=== PATIENT | male | born 1945 | race Caucasian/White ===

== ENCOUNTER 2018-03-31 06:06 | Day surgery (SDC) | payer OTHER ==
--- OUTSIDE RECORDS SUMMARY | 2018-03-31 06:08 | XMS REPORT | Continuity of Care Document ---
:1945 Author Organization Interface Problems Problem Status Onset Classification Date Comments Source Date Reported Chronic 09/10/19 Diagnosis 09/09/2017 [facility] constipation 18 Body mass index 08/26/19 Diagnosis 09/09/2017 [facility] 40+ - severely 18 obese Pain in throat 08/26/19 Diagnosis 09/09/2017 [facility] 18 Cough 08/26/19 Diagnosis 09/09/2017 [facility] 18 Acute upper 08/26/19 Diagnosis 09/09/2017 [facility] respiratory 18 infection Common cold 06/24/19 Diagnosis 06/24/2017 [facility] 18 Diabetes Mellitus 04/08/20 Problem 09/09/2017 [facility] 17 Essential 04/08/20 Problem 09/09/2017 [facility] Hypertension 17 Asthma 04/08/20 Problem 09/09/2017 [facility] 17 Superficial injury 04/08/20 Diagnosis 04/08/2017 [facility] of finger with 17 infection Acute bronchitis 08/21/19 Diagnosis 08/20/2016 [facility] 17 Pharyngitis 08/10/19 Diagnosis 08/20/2016 [facility] 17 Herpes Zoster Problem 08/20/2016 [facility] Conjunctivitis Problem 08/20/2016 [facility] Blepharitis Problem 08/20/2016 [facility] Lesion of Eyelid Problem 08/20/2016 [facility] Pain in Eye Problem 08/20/2016 [facility] Acute Sinusitis Problem 08/20/2016 [facility] Acute Pharyngitis Problem 08/20/2016 [facility] Acute Upper Problem 08/20/2016 [facility] Respiratory Infection Sinusitis Problem 08/20/2016 [facility] Posterior Problem 08/20/2016 [facility] Rhinorrhea Bronchitis Problem 08/20/2016 [facility] Infection of Toe Problem 08/20/2016 [facility] Swelling of Lower Problem 08/20/2016 [facility] Limb Epistaxis Problem 08/20/2016 [facility] Lymphadenopathy Problem 08/20/2016 [facility] Diarrhea Problem 08/20/2016 [facility] Medications Medication Details Route Status Patient Ordering Order Source Instructions Provider Date Alprazolam 0.25 MG alprazolam Active [facility] Oral Tablet 0.25 mg tablet Brompheniramine Bromfed DM 2 Active [facility] Maleate 0.4 MG/ML / mg-30 mg-10 Dextromethorphan mg/5 mL syrup Hydrobromide 2 Take 10 mL MG/ML / every 4-6 Pseudoephedrine hours by oral Hydrochloride 6 route as MG/ML Oral Solution needed. [Bromfed DM] clopidogrel 75 MG clopidogrel 75 Active [facility] Oral Tablet mg tablet Furosemide 40 MG furosemide 40 Active [facility] Oral Tablet mg tablet 24 HR Isosorbide isosorbide Active [facility] Mononitrate 30 MG mononitrate ER Extended Release 30 mg Oral Tablet tablet,extende d release 24 hr 24 HR Isosorbide isosorbide Active [facility] Mononitrate 60 MG mononitrate ER Extended Release 60 mg Oral Tablet tablet,extende d release 24 hr Microencapsulated Klor-Con M20 Active [facility] Potassium Chloride mEq 20 MEQ Extended tablet,extende Release Oral Tablet d release [Klor-Con] Lisinopril 10 MG lisinopril 10 Active [facility] Oral Tablet mg tablet Metformin metformin 500 Active [facility] hydrochloride 500 mg tablet MG Oral Tablet 24 HR metoprolol metoprolol Active [facility] succinate 100 MG succinate ER Extended Release 100 mg Oral Tablet tablet,extende d release 24 hr Nitroglycerin 0.4 Nitrostat 0.4 Active [facility] MG Sublingual mg sublingual Tablet [Nitrostat] tablet valacyclovir 1000 valacyclovir 1 Active [facility] MG Oral Tablet gram tablet 200 ACTUAT albuterol Active [facility] Albuterol 0.09 sulfate HFA 90 MG/ACTUAT Metered mcg/actuation Dose Inhaler aerosol inhaler Inhale 2 puffs every 4 hours by inhalation route as needed. Amoxicillin 875 MG Augmentin 875 Active [facility] / Clavulanate 125 mg-125 mg MG Oral Tablet tablet Take 1 [Augmentin] tablet twice a day by oral route with meals for 10 days. benzonatate 200 MG benzonatate Active [facility] Oral Capsule 200 mg capsule Take 1 capsule 3 times a day by oral route as needed. Fluticasone fluticasone 50 Active [facility] propionate 0.05 mcg/actuation MG/ACTUAT Metered nasal Dose Nasal [place] spray,suspensi on Inhale 2 sprays per nostril daily 24 HR Isosorbide isosorbide Active [facility] Mononitrate 120 MG mononitrate ER Extended Release 120 mg Oral Tablet tablet,extende d release 24 hr Mupirocin 0.02 mupirocin 2 % Active [facility] MG/MG Topical topical Ointment ointment APPLY A SMALL AMOUNT TO THE AFFECTED AREA BY TOPICAL ROUTE 3 TIMES PER DAY Nitroglycerin 0.4 nitroglycerin Active [facility] MG Sublingual 0.4 mg Tablet sublingual tablet Microencapsulated potassium Active [facility] Potassium Chloride chloride ER 20 20 MEQ Extended mEq Release Oral Tablet tablet,extende d release(part/c ryst) 200 ACTUAT ProAir HFA 90 Active [facility] Albuterol 0.09 mcg/actuation MG/ACTUAT Metered aerosol Dose Inhaler inhaler Inhale [ProAir] 2 puffs every 4 hours by inhalation route as needed. 12 HR ranolazine Ranexa 500 mg Active [facility] 500 MG Extended tablet,extende Release Oral Tablet d release Take [Ranexa] 1 tablet twice a day by oral route. Cephalexin 500 MG Keflex 500 mg Active [facility] Oral Capsule capsule Take 1 [Keflex] capsule every 12 hours by oral route as directed for 10 days. Albuterol 0.83 albuterol Active [facility] MG/ML Inhalant sulfate 2.5 Solution mg/3 mL (0.083 %) solution for nebulization Inhale 1 mL by nebulization route. POLYETHYLENE GLYCOL Miralax 17 Active [facility] 3350 58788 MG gram oral Powder for Oral powder packet Solution [Miralax] Take 1 packet every day by oral route. Allergies, Adverse Reactions, Alerts Substance Category Reaction Severity Reaction Status Date Comments Source type Reported Codeine Itching Allergy to [facility] substance 0 Sulfa Allergy to [facility] (Sulfonamid substance 4 e Antibiotics ) Immunizations Immunization Date Site Status Last Comments Source Given Updated influenza, completed [facility] injectable, 7 quadrivalent pneumococcal completed [facility] conjugate PCV 13 7 pneumococcal completed [facility] polysaccharide 6 PPV23 influenza, completed [facility] seasonal, 1 injectable influenza, 02/20/201 completed [facility] seasonal, 1 injectable Results Order Results Value Reference Date Interpretation Comments Source Name Range RESULT negative 09/09/ [facility] 2018 SWAB Left and 09/09/ [facility] LOCATION Right 2018 tonsillar pillars Influenza A negative [facility] 2017 Influenza B negative [facility] 2018 RESULT negative [facility] 2018 SWAB Left and 08/25/ [facility] LOCATION Right 2018 tonsillar pillars Influenza A negative [facility] 2017 Influenza B negative [facility] 2017 Influenza A negative [facility] 2017 Influenza B negative [facility] 2017 RESULT negative [facility] 2016 SWAB Left and 08/20/ [facility] LOCATION Right 2016 tonsillar pillars RESULT negative [facility] 2016 SWAB Left and [facility] LOCATION Right 2017 tonsillar pillars Vital Signs Vital Sign Value Date Comments Source Diastolic (mm Hg) 80 09/09/2017 [facility] Height 70 09/09/2017 [facility] Systolic (mm Hg) 133 09/09/2017 [facility] Weight 290 09/09/2017 [facility] Diastolic (mm Hg) 88 08/25/2017 [facility] Height 70 08/25/2017 [facility] Systolic (mm Hg) 123 08/25/2017 [facility] Weight 285 08/25/2017 [facility] Diastolic (mm Hg) 70 06/24/2017 [facility] Height 70 06/24/2017 [facility] Systolic (mm Hg) 118 06/24/2017 [facility] Weight 295 06/24/2017 [facility] Diastolic (mm Hg) 70 04/08/2017 [facility] Height 70 04/08/2017 [facility] Systolic (mm Hg) 110 04/08/2017 [facility] Weight 295 04/08/2017 [facility] Diastolic (mm Hg) 80 08/20/2016 [facility] Height 70 08/20/2016 [facility] Systolic (mm Hg) 110 08/20/2016 [facility] Weight 280 08/20/2016 [facility] Diastolic (mm Hg) 78 08/10/2016 [facility] Height 70 08/10/2016 [facility] Systolic (mm Hg) 120 08/10/2016 [facility] Encounters Location Location Encounter Encounter Reason Attending ADM DC Status Source Details Type Number For Provider Date Date Visit [place] - Cherri [id number] Cherri 08/10 [facility] Emiola, [id number] Emiola - TINSMITH APPRENTICE: [id number] [id number] [facility] [place] [address] , Ph. [phone] [place] - Cherri [id number] Cherri 08/10 [facility] Emiola, [id number] Emiola - TINSMITH APPRENTICE: [id number] [id number] [facility] [place] [address] , Ph. [phone] [place] - Jovanna [id number] Jovanna 08/20 [facility] [place], [id number] [place] - TINSMITH APPRENTICE: [id number] [address] [facility] [place] [address] , Ph. [phone] [place] - Kiranpal [id number] Kiranpal 04/08 [facility] Ochoa, [id number] Ochoa - PA-C: [id number] [facility] [place] [address] , Ph. [phone] [place] - Kiranpal [id number] Kiranpal 06/24 [facility] Ochoa, [id number] Ochoa - PA-C: [id number] [facility] [place] [address] , Ph. [phone] [place] - Pauly [id number] Pauly 08/25 [facility] Thuy, [id number] Thuy - TINSMITH APPRENTICE-C: [id number] [facility] [place] [address] , Ph. [phone] [place] - Pauly [id number] Pauly 08/25 [facility] Thuy, [id number] Thuy P-C: [id number] [place] [address] , Ph. [phone] [place] - Tanika [id number] Tanika 09/09 [facility] Ababio, [id number] Ababio P-C: [id number] [id number] [place] [address] , Ph. [phone] Procedures Procedure Code Date Perfomer Comments Source Anesth Knee Area [facility] Surgery Removal of [facility] Gallbladder CABG/Stent [facility] Perc Cath [facility] Stent/brain Cv Art Anesth Knee Area 13487 [facility] [place] [address] [facility] Gallbladder Perc Cath 0005T [facility] Stent/brain Cv Art
--- OUTSIDE RECORDS SUMMARY | 2018-03-31 06:08 | XMS REPORT | Clinical Summary ---
:1945 Author Organization [facility] Address [address] [place] [address] Care Team Providers Name Role Phone Asked, No Pcp Primary Care Provider Unavailable Allergies Active Allergy Reactions Severity Noted Date Comments Codeine 03/04/2016 Current Medications Prescription Sig. Disp. Refills Start Date End Date Status KLOR-CON M20 20 mEq CR tablet 02/19/2016 Active NITROSTAT 0.4 mg SL tablet 02/18/2016 Active metoprolol succinate XL (TOPROL-XL) 100 02/18/2016 Active MG 24 hr tablet metFORMIN (GLUCOPHAGE) 500 MG tablet 02/10/2016 Active lisinopril (PRINIVIL,ZESTRIL) 10 MG 02/09/2016 Active tablet furosemide (LASIX) 40 MG tablet 02/19/2016 Active ALPRAZolam (XANAX) 0.25 MG tablet 02/13/2016 Active clopidogrel (PLAVIX) 75 mg tablet 02/10/2016 Active isosorbide mononitrate (IMDUR) 60 MG 24 02/19/2016 Active hr tablet Active Problems No known active problems Family History Medical History Relation Name Comments Hypertension Sister Relation Name Status Comments Sister Social History Tobacco Use Types Packs/Day Years Used Date Never Smoker Alcohol Use Drinks/Week oz/Week Comments Yes rarely Sex Assigned at Date Recorded Not on file Last Filed Vital Signs Not on file Plan of Treatment Health Maintenance Due Date Last Done Comments COLON CANCER SCREENING 01/30/1996 SHINGRIX VACCINE (#1) 01/30/1996 ZOSTER VACCINE 2006 PNEUMOCOCCAL POLYSACCHARIDE VACCINE AGE 65 AND OVER 2011 PNEUMOCOCCAL-13 2011 INFLUENZA VACCINE 01/14/2018 Results Not on fileafter 03/30/2017 Insurance Payer Benefit Plan / Group Subscriber ID Type Phone Address MEDICARE MEDICARE PART A AND B xxxxxxxxxx Medicare [facility] SUPPLEMENT xxxxxxxxxxx Commercial
--- OUTSIDE RECORDS SUMMARY | 2018-03-31 06:09 | XMS REPORT | Encounter Summary ---
:1945 Author Reason for Visit Medical Complaint Instructions 1. Acute upper respiratory infection Bromfed DM 2 mg-30 mg-10 mg/5 mL syrup 2. Pharyngitis rapid strep group A, throat Discussion Note Warm salt water gargles or throat lozenges as needed for your sore throat. Tylenol or ibuprofen as needed for fever/headache. Increased fluid. Follow up with your primary care provider in 3days, sooner if symptoms worsens. Patient educational handouts: No information available. Plan of Care Reminders Provider Appointments None recorded. Lab Rapid Strep 08/10/2016 [facility] Group a, Throat Referral None recorded. Procedures None recorded. Surgeries None recorded. Imaging None recorded. Medications Name Start Date alprazolam 0.25 mg tablet Bromfed DM 2 mg-30 mg-10 mg/5 mL syrup Take 10 mL every 4-6 hours by oral route as needed. clopidogrel 75 mg tablet furosemide 40 mg tablet isosorbide mononitrate ER 30 mg tablet,extended release 24 hr isosorbide mononitrate ER 60 mg tablet,extended release 24 hr Klor-Con M20 mEq tablet,extended release lisinopril 10 mg tablet metformin 500 mg tablet metoprolol succinate ER 100 mg tablet,extended release 24 hr Nitrostat 0.4 mg sublingual tablet valacyclovir 1 gram tablet Medications Administered None recorded. Vitals Height Blood Pressure 5 ft 10 in 120/78 Lab Results Date Name Result Description Value Range Status Rapid Strep Group Result negative a, Throat Swab Location Left and Right tonsillar pillars Allergies Name Reaction Severity Onset Codeine Itching Sulfa (Sulfonamide Antibiotics) Problems Name Status Onset Date Source Herpes Zoster Active Encounter Conjunctivitis Active Encounter Blepharitis Active Encounter Lesion of Eyelid Active Encounter Pain in Eye Active Encounter Acute Sinusitis Active Encounter Acute Pharyngitis Active Encounter Acute Upper Respiratory Infection Active Encounter Sinusitis Active Encounter Posterior Rhinorrhea Active Encounter Bronchitis Active Encounter Infection of Toe Active Encounter Swelling of Lower Limb Active Encounter Epistaxis Active Encounter Lymphadenopathy Active Encounter Cough Active Encounter Diarrhea Active Encounter Procedures Date Name Performed by Anesth Knee Area Surgery Information not available Removal of Gallbladder Information not available CABG/Stent Information not available Perc Cath Stent/brain Cv Art Information not available Vaccine List Vaccine Type influenza, seasonal, injectable 08/05/2010 08/17/2010 Social History Smoking Status Never Smoker Past Encounters 08/10/2016 Acute Upper Respiratory Infection; Pharyngitis Cherri LALO MercedesP: [id number] [facility], [place] [address], Ph. History of Present Illness Throat-Oral Complaint Reported By: Patient HPI: Location: throat. Quality: sore throat, productive cough, congested. Severity: moderate. Duration: 2 days. Context: no sick contacts, no foreign travel, non-smoker. Modifying factors: OTC medication. Associated Symptoms: blood-streaked sputum Review of Systems Basic Reported By: Patient Constitutional: Constitutional: no fever Dhmv-Hutt-Arerm-Throat: Ears: no ear complaints. Nose: nose/sinus problems. Mouth/Throat: no bleeding gums, no mouth complaints, no teeth problems, sore throat Cardiovascular: Cardiovascular: no chest pain, no shortness of breath, no known heart murmur Respiratory: Respiratory: no wheezing, no shortness of breath, cough Neurologic: Neurologic: no loss of consciousness, no weakness, no numbness, no seizures, no dizziness, no headaches Physical Exam Adult Basic, Adult Male Complete Reported By: Patient Constitutional: General Appearance: healthy-appearing, well-nourished, well-developed. Level of Distress: NAD. Ambulation: ambulating normally Psychiatric: Orientation: to time, to place, to person Dpr-Qavk-Lshhi-Throat: Ears: no lesions on external ear, no outer ear tenderness, EACs clear, TMs clear. Nose: no lesions on external nose, nares patent, no septal deviation, nasal passages clear, no sinus tenderness, no nasal discharge. Oropharynx: moist mucous membranes, no erythema, no exudates, tonsils not enlarged Neck: Lymph Nodes: no cervical LAD Lungs: Respiratory effort: no dyspnea, no tachypnea, no use of accessory muscles, no intercostal retractions. Auscultation: breath sounds normal, good air movement Cardiovascular: Heart Auscultation: RRR, no murmurs
--- OUTSIDE RECORDS SUMMARY | 2018-03-31 06:09 | XMS REPORT | Encounter Summary ---
:1945 Author Reason for Visit Medical Complaint Instructions 1. Acute upper respiratory infection upper respiratory infection (cold): care instructions albuterol sulfate 2.5 mg/3 mL (0.083 %) solution for nebulization 2. Cough rapid flu (A+B) cough: care instructions benzonatate 200 mg capsule 3. Pain in throat rapid strep group A, throat sore throat: care instructions 4. Body mass index 40+ - severely obese A healthy lifestyle: care instructions Discussion Note: None recorded. Plan of Care Patient Instructions Increase fluid; rest. Tylenol or Ibuprofen as needed for fever or pain. Increase exposure to moist air from humidifier or hot shower. Salt water gargles as needed. Follow up with PCP. See care instructions Reminders Provider Appointments None recorded. Lab Rapid Flu 08/25/2017 [facility] (A+B) Rapid Strep 08/25/2017 [facility] Group a, Throat Referral None recorded. Procedures None recorded. Surgeries None recorded. Imaging None recorded. Medications Name Start Date albuterol sulfate 2.5 mg/3 mL (0.083 %) solution for nebulization Inhale 1 mL by nebulization route. alprazolam 0.25 mg tablet benzonatate 200 mg capsule Take 1 capsule 3 times a day by oral route as needed. clopidogrel 75 mg tablet fluticasone 50 mcg/actuation nasal spray,suspension Inhale 2 sprays per nostril daily furosemide 40 mg tablet isosorbide mononitrate ER 120 mg tablet,extended release 24 hr lisinopril 10 mg tablet metformin 500 mg tablet metoprolol succinate ER 100 mg tablet,extended release 24 hr mupirocin 2 % topical ointment APPLY A SMALL AMOUNT TO THE AFFECTED AREA BY TOPICAL ROUTE 3 TIMES PER DAY nitroglycerin 0.4 mg sublingual tablet potassium chloride ER 20 mEq tablet,extended release(part/cryst) ProAir HFA 90 mcg/actuation aerosol inhaler Inhale 2 puffs every 4 hours by inhalation route as needed. Ranexa 500 mg tablet,extended release Take 1 tablet twice a day by oral route. Medications Administered Name Date albuterol sulfate 2.5 mg/3 mL (0.083 %) solution for nebulization [id number] Inhale 1 mL by nebulization route. Vitals Height Weight BMI Blood Pressure 5 ft 10 in 285 lbs 40.9 kg/m2 123/88 mm[Hg] Lab Results Date Name Specimen Result Interpretation Description Value Range Status Address Rapid Strep Result negative [facility]: Group a, [address] [place] [facility] Swab Location Left and Right [facility]: tonsillar [address] [place] pillars [facility] Rapid Flu Influenza a negative [facility]: (A+B) 9 [facility] Influenza B negative [facility]: 9 [facility] Allergies Code Code System Name Reaction Severity Status Onset 2669 RxNorm Codeine Itching Active Sulfa Active (Sulfonamide Antibiotics) Problems Name Status Onset Date Source Diabetes Mellitus Active 04/08/2017 Essential Hypertension Active 04/08/2017 Asthma Active 04/08/2017 Procedures Date Name Performed by Anesth Knee Area Surgery Information not available Removal of Gallbladder Information not available CABG/Stent Information not available Perc Cath Stent/brain Cv Art Information not available Vaccine List Vaccine Type influenza, injectable, quadrivalent 05/16/2017 influenza, seasonal, injectable 08/05/2010 08/17/2010 pneumococcal conjugate PCV 13 06/16/2016 pneumococcal polysaccharide PPV23 06/16/2015 Social History Smoking Status Never Smoker Past Encounters 08/25/2017 Acute Upper Respiratory Infection; Cough; Pain in Throat; Body Mass Index 40+ - Severely Obese Pauly Daley, [facility]: [address] [place] [address], Ph. [phone] History of Present Illness Nelkk-Ueztxsbmjf-Rqdtsmd Reported By: Patient HPI: Location: head/sinuses, throat, chest. Quality: productive cough, sore throat, colored phlegm, nasal/sinus congestion, hacking cough. Duration: 2days. Severity: moderate. Onset/Timing: gradual. Context: no sick contacts, no foreign travel, non-smoker. Modifying factors: OTC medication, salt water gargles. Associated Symptoms: no vomiting, no diarrhea, no rash, no nausea, no fever, no muscle aches, shortness of breath, wheezing, fatigue, sore throat, fever, headache Review of Systems Basic Reported By: Patient Constitutional: Constitutional: no fever Eyes: Eyes: no eye complaints Oyvs-Ciuv-Rzpqr-Throat: Ears: no ear complaints. Nose: nose/sinus problems. Mouth/Throat: no bleeding gums, no mouth complaints, no teeth problems, sore throat Cardiovascular: Cardiovascular: no chest pain, no shortness of breath Respiratory: Respiratory: cough, wheezing, shortness of breath Gastrointestinal: Gastrointestinal: no abdominal pain, no vomiting / diarrhea Musculoskeletal: Musculoskeletal: no muscle aches, no muscle weakness, no arthralgias/joint pain, back pain Skin: Skin: no jaundice, no rashes Neurologic: Neurologic: no dizziness Physical Exam Adult Basic, Adult Male Complete Reported By: Patient Constitutional: General Appearance: obese. Level of Distress: moderate distress. Ambulation: ambulating normally Psychiatric: Mental Status: active and alert. Orientation: to time, to place, to person Eyes: Lids and Conjunctivae: non-injected, no discharge, no pallor. Lens: clear. Sclerae: non-icteric Pyg-Rbmi-Suqcr-Throat: Ears: no lesions on external ear, no outer ear tenderness, EACs clear, TMs clear, TM mobility normal. Hearing: no hearing loss. Nose: no lesions on external nose, nares patent, no septal deviation, nasal passages clear, no sinus tenderness, nasal discharge--rhinorrhea, post nasal drip. Lips, Teeth, and Gums: no mouth or lip ulcers, no bleeding gums. Oropharynx: moist mucous membranes, no exudates, tonsils not enlarged, erythema Neck: Neck: supple, trachea midline, no masses, FROM. Lymph Nodes: no cervical LAD, no supraclavicular LAD. Thyroid: no enlargement, non-tender, no nodules Lungs: Respiratory effort: no dyspnea, no tachypnea, no use of accessory muscles, no intercostal retractions. Auscultation: diminished air movement Cardiovascular: Heart Auscultation: RRR Musculoskeletal:: Motor Strength and Tone: normal motor strength, normal tone, normal. Joints, Bones, and Muscles: normal movement of all extremities Neurologic: Gait and Station: normal gait, normal station. Cranial Nerves: grossly intact. Sensation: grossly intact Skin: Inspection and palpation: no rash, no lesions, no jaundice; on visible skin Back: Thoracolumbar Appearance: normal curvature Abdomen: Bowel Sounds: normal. Inspection and Palpation: soft, no tenderness, no guarding
--- OUTSIDE RECORDS SUMMARY | 2018-03-31 06:09 | XMS REPORT | Encounter Summary ---
:1945 Author Reason for Visit Medical Complaint Instructions 1. Superficial injury of finger with infection mupirocin 2 % topical ointment Keflex 500 mg capsule Discussion Note Can take ibuprofen or tylenol as needed for pain relief/SANCHEZ/fevers. Take medication as directed. Call w/ questions or concerns. Patient educational handouts: No information available. Plan of Care Reminders Provider Appointments None recorded. Lab None recorded. Referral None recorded. Procedures None recorded. Surgeries None recorded. Imaging None recorded. Medications Name Start Date alprazolam 0.25 mg tablet clopidogrel 75 mg tablet furosemide 40 mg tablet isosorbide mononitrate ER 120 mg tablet,extended release 24 hr Keflex 500 mg capsule Take 1 capsule every 12 hours by oral route as directed for 10 days. lisinopril 10 mg tablet metformin 500 mg [...] 4 hours by inhalation route as needed. Medications Administered None recorded. Vitals Height Weight BMI Blood Pressure 5 ft 10 in 295 lbs 42.3 kg/m2 110/70 mm[Hg] Lab Results None recorded. Allergies Code Code System Name Reaction Severity [...] History Smoking Status Never Smoker Past Encounters 04/08/2017 Superficial Injury of Finger with Infection Cisco Ochoa PA-C: [address] [place] [address], Ph. History of Present Illness Bqtl-Kvniuyn-Wbvgh-Skin Lesion-Bite 1 Reported By: Patient HPI: Location: hands. Quality: not itchy, not painful, tender, red, single, localized, swollen. Severity: moderate. Duration: has noted for <1 week. Context: no new detergents or skin products, no one else with similar rash, no sting or bite. Alleviating factors: nothing gives relief. Associated Symptoms: no fever/chills, no muscle aches, no headache, no cold symptoms, no nausea, no vomiting, no diarrhea, no urinary symptoms Review of Systems Basic Reported By: Patient Constitutional: Constitutional: no fever Skin: Skin: growths/lesions Physical Exam Adult Basic Reported By: Patient Constitutional: General Appearance: healthy-appearing, well-nourished, well-developed. Level of Distress: NAD. Ambulation: ambulating normally Psychiatric: Mental Status: active and alert. Orientation: to time, to place, to person Neck: Neck: FROM Lungs: Respiratory effort: no dyspnea, no tachypnea, no use of accessory muscles, no intercostal retractions Musculoskeletal:: Joints, Bones, and Muscles: normal movement of all extremities Neurologic: Gait and Station: normal gait, normal station Skin: Inspection and palpation: lesion
--- OUTSIDE RECORDS SUMMARY | 2018-03-31 06:09 | XMS REPORT | Encounter Summary ---
:1945 Author Reason for Visit Medical Complaint Instructions 1. Acute bronchitis bronchitis: care instructions albuterol sulfate HFA 90 mcg/actuation aerosol inhaler Augmentin 875 mg-125 mg tablet benzonatate 200 mg capsule Discussion Note: None recorded. Plan of Care Reminders Provider Appointments None recorded. Lab None recorded. Referral None recorded. Procedures None recorded. Surgeries None recorded. Imaging None recorded. Medications Name Start Date albuterol sulfate HFA 90 mcg/actuation aerosol inhaler Inhale 2 puffs every 4 hours by inhalation route as needed. alprazolam 0.25 mg tablet Augmentin 875 mg-125 mg tablet Take 1 tablet twice a day by oral route with meals for 10 days. benzonatate 200 mg capsule Take 1 capsule 3 times a day by oral route as needed for 7 days. Bromfed DM 2 mg-30 mg-10 mg/5 mL [...] tablet Medications Administered None recorded. Vitals Height Weight BMI Blood Pressure 5 ft 10 in 280 lbs 40.2 110/80 Lab Results Date Name Result Description Value [...] History Smoking Status Never Smoker Past Encounters 08/20/2016 Acute Bronchitis Jovanna Baez, [employer]: [address] [place] [address], Ph. 08/10/2016 Acute Upper Respiratory Infection; Pharyngitis Cherri Mercedes, [employer]: [address] [place] [address], Ph. [phone] History of Present Illness Cough Reported By: Patient HPI: Location: chest. Quality: productive cough, colored phlegm, congested. Duration: days, symptoms lasting over 2 weeks. Severity: moderate. Onset/Timing: gradual. Context: no sick contacts, no foreign travel, non-smoker, asthma. Modifying factors: ; bromfed. Associated Symptoms: no sweats, no significant weight gain, no significant weight loss, no sore throat, no vomiting, no diarrhea, no rash, no nausea, no fever/chills, no muscle aches, no headache, yellow-green, thick sputum, shortness of breath, wheezing, difficulty breathing at night, morning cough Review of Systems Basic Reported By: Patient Constitutional: Constitutional: fever Eyes: Eyes: no eye complaints Sudm-Larj-Qllct-Throat: Ears: no ear complaints. Nose: nose/sinus problems. Mouth/Throat: no sore throat, no bleeding gums, no mouth complaints, no teeth problems Cardiovascular: Cardiovascular: no chest pain, no shortness of breath, no known heart murmur Respiratory: Respiratory: cough, wheezing, shortness of breath Gastrointestinal: Gastrointestinal: no abdominal pain, no vomiting / diarrhea Genitourinary: Genitourinary: no urinary complaints, no discharge Musculoskeletal: Musculoskeletal: no muscle aches, no muscle weakness, no arthralgias/joint pain, no back pain Skin: Skin: no abnormal / changing mole, no jaundice, no rashes Neurologic: Neurologic: no loss of consciousness, no weakness, no numbness, no seizures, no dizziness, no headaches Physical Exam Adult Basic Reported By: Patient Constitutional: General Appearance: obese. Level of Distress: NAD. Ambulation: ambulating normally Psychiatric: Mental Status: active and alert. Orientation: to time, to place, to person Eyes: Lids and Conjunctivae: non-injected, no discharge, no pallor. Pupils: PERRLA. Corneas: grossly intact. EOM: EOMI. Lens: clear. Sclerae: non-icteric Nkd-Aloo-Vtlrm-Throat: Ears: no lesions on external ear, no outer ear tenderness, EACs clear, TMs clear. Hearing: no hearing loss. Nose: no lesions on external nose, nares patent, no septal deviation, nasal passages clear, no sinus tenderness, nasal discharge--rhinorrhea, post nasal drip. Lips, Teeth, and Gums: no mouth or lip ulcers, no bleeding gums, normal dentition. Oropharynx: moist mucous membranes, no erythema, no exudates, tonsils not enlarged Neck: Neck: supple, trachea midline. Lymph Nodes: no cervical LAD, no supraclavicular LAD. Thyroid: no enlargement Lungs: Respiratory effort: no tachypnea, no use of accessory muscles, no intercostal retractions, dyspneic. Percussion: no dullness, flatness, or hyperresonance. Auscultation: inspiratory wheezing, expiratory wheezing Cardiovascular: Heart Auscultation: RRR, no murmurs Musculoskeletal:: Motor Strength and Tone: normal motor strength. Joints, Bones, and Muscles: normal movement of all extremities. Extremities: no cyanosis, no edema Neurologic: Gait and Station: normal gait, normal station. Sensation: grossly intact Skin: Inspection and palpation: no rash, no lesions, no ulcer, good turgor, no jaundice. Nails: normal
--- OUTSIDE RECORDS SUMMARY | 2018-03-31 06:09 | XMS REPORT | Encounter Summary ---
:1945 Author Reason for Visit Medical Complaint Instructions 1. Common cold fluticasone 50 mcg/actuation nasal spray,suspension viral respiratory infection: care instructions rapid flu (A+B) Discussion Note Tylenol or ibuprofen as needed for pain relief/fevers. Drink plenty of fluids to stay hydrated while feeling ill. Take medication as directed. Get plenty of rest. No sharing of food or drinks. Lots of good handwashing to prevent others from getting sick. Call with questions or concerns. Plan of Care Reminders Provider Appointments None recorded. Lab Rapid Flu 06/24/2017 [facility] (A+B) Referral None recorded. Procedures None recorded. Surgeries None recorded. Imaging None recorded. Medications Name Start Date alprazolam 0.25 mg tablet clopidogrel 75 mg tablet fluticasone 50 mcg/actuation [...] as needed. Ranexa 500 mg tablet,extended release Medications Administered None recorded. Vitals Height Weight BMI Blood Pressure 5 ft 10 in 295 lbs 42.3 kg/m2 118/70 mm[Hg] Lab Results Date Name Specimen Result Interpretation Description Value Range Status Address Rapid Flu Influenza a negative [facility]: (A+B) [address] [place] [address] Influenza B negative [facility]: [address] [place] [address] Allergies Code Code System Name Reaction Severity Status Onset 2670 RxNorm Codeine Itching Active Sulfa Active (Sulfonamide [...] History Smoking Status Never Smoker Past Encounters 06/24/2017 Common Cold Cisco Ochoa PA-C: [address] [place] [address], Ph. [phone] History of Present Illness Oiobq-Civzxpnflr-Eehqutn Reported By: Patient HPI: Location: head/sinuses, throat, chest. Quality: sore throat, nasal/sinus congestion, hacking cough. Duration: 5-6days. Severity: moderate. Onset/Timing: gradual. Context: no sick contacts, no foreign travel, non-smoker. Modifying factors: OTC medication, salt water gargles. Associated Symptoms: no shortness of breath, no wheezing, no muscle aches, fatigue, sore throat, fever, headache Review of Systems Basic Reported By: Patient Constitutional: Constitutional: fever Lhfa-Vxdg-Tnpzw-Throat: Ears: no ear complaints. Nose: nose/sinus problems. Mouth/Throat: sore throat Respiratory: Respiratory: cough Musculoskeletal: Musculoskeletal: no muscle aches Neurologic: Neurologic: no headaches Physical Exam Adult Basic Reported By: Patient Constitutional: General Appearance: healthy-appearing, well-nourished, well-developed. Level of Distress: NAD. Ambulation: ambulating normally Psychiatric: Mental Status: active and alert. Orientation: to time, to place, to person Rvn-Oaiz-Lrmlz-Throat: Ears: TM opacified. Hearing: no hearing loss. Nose: no lesions on external nose, nares patent, no septal deviation, nasal passages clear, no sinus tenderness, post nasal drip. Lips, Teeth, and Gums: no mouth or lip ulcers, no bleeding gums, normal dentition. Oropharynx: moist mucous membranes, no erythema, no exudates, tonsils not enlarged Neck: Neck: supple, trachea midline, no masses, FROM. Lymph Nodes: no cervical LAD Lungs: Respiratory effort: no dyspnea, no tachypnea, no use of accessory muscles, no intercostal retractions. Auscultation: breath sounds normal Cardiovascular: Heart Auscultation: RRR Musculoskeletal:: Joints, Bones, and Muscles: normal movement of all extremities Neurologic: Gait and Station: normal gait, normal station
--- OUTSIDE RECORDS SUMMARY | 2018-03-31 06:09 | XMS REPORT | Encounter Summary ---
:1945 Author Reason for Visit Medical Complaint Instructions 1. Chronic constipation Miralax 17 gram oral powder packet constipation: care instructions 2. Body mass index 40+ - severely obese body mass index: care instructions Discussion Note: None recorded. Plan of Care Patient Instructions Instructed increase fluids Encouraged walking at least daily Advised to schedule appointment for colonoscopy. If symptoms worsen to see PCP or GI doctor. Reminders Provider Appointments None recorded. Lab None [...] ER 100 mg tablet,extended release 24 hr Miralax 17 gram oral powder packet Take 1 packet every day by oral route. mupirocin 2 % topical ointment APPLY A [...] a day by oral route. Medications Administered None recorded. Vitals Height Weight BMI Blood Pressure 5 ft 10 in 290 lbs 41.6 kg/m2 133/80 mm[Hg] Lab Results Date Name Specimen Result Interpretation Description Value Range Status Address Rapid Strep Result negative [facility]: Group a, [address] [place] [facility] Swab Location Left and Right [facility]: tonsillar 9 [facility] Rapid Flu Influenza a negative [facility]: (A+B) 9 [facility] Influenza B negative [facility]: 9 [facility] Allergies Code Code System Name Reaction Severity [...] History Smoking Status Never Smoker Past Encounters 09/09/2017 Chronic Constipation; Body Mass Index 40+ - Severely Obese Tanika Lagosdanyel, [facility]-C: [address] [place] [address], Ph. 08/25/2017 Acute Upper Respiratory Infection; Cough; Pain in Throat; Body Mass Index 40+ - Severely Obese Pauly Thomasurouma, [facility]-C: [address] [place] [address], Ph. [phone] History of Present Illness Jpbqui-Rdaingyw-Jzxnddje / Abdominal Pain Reported By: Patient HPI: Quality: worsening; Abdominal pain & intermittent constipation. Severity: moderate. Duration: symptoms last for how long?; 3-4 days. Onset/Timing: gradual onset. Context: no one else with similar symptoms, no recent camping, no recent picnic, no possible food sources, no recent travel, history of gallbladder disease, taking new medication, bowel movement frequency:, last bowel movement:, no well water, no family history of colon polyps or cancer, alcohol use, has had a colonoscopy. Alleviating factors: OTC medication. Aggravating factors: lactose. Associated Symptoms: no abdominal pain, no excess gas, no fever/chills, no rash, no joint pain, no weight loss, no nausea, no vomiting, no heartburn, no blood in stool, no mucus in stool, no black or tarry stools, no weakness, no nutrient deficiency, no headache, no feeling of fullness/mass in throat, no muscle aches, no bitter taste in the mouth, no difficulty swallowing (dysphagia) Review of Systems: ROS as noted in the HPI Review of Systems Basic Reported By: Patient Physical Exam Adult Basic, Adult Female Complete, Adult Male Complete Reported By: Patient Constitutional: General Appearance: morbidly obese. Level of Distress: NAD. Ambulation: ambulating normally Psychiatric: Mental Status: active and alert. Orientation: to time, to place, to person Neck: Lymph Nodes: no cervical LAD Lungs: Respiratory effort: no dyspnea, no tachypnea, no use of accessory muscles, no intercostal retractions. Auscultation: breath sounds normal Cardiovascular: Heart Auscultation: RRR, no murmurs Musculoskeletal:: Joints, Bones, and Muscles: normal movement of all extremities Neurologic: Gait and Station: normal gait Skin: Inspection and palpation: no rash Back: Thoracolumbar Appearance: normal curvature Abdomen: Bowel Sounds: normal. Inspection and Palpation: soft, no guarding, no rebound tenderness, no masses, no CVA tenderness, distended, LUQ tenderness. Liver: non-tender, no hepatomegaly. Spleen: non-tender, no splenomegaly
[2018-03-31] MEDS ORDERED: NA CHLORIDE 0.9% 500 ML ONE (06:41)
[2018-03-31] MEDS ORDERED: LIDOCAINE 1% MPF 5 ML VIAL ONE (06:44)
[2018-03-31 06:56] LABS: Absolute Lymphocytes (CBC) 2.5 K/uL (0.7-4.9); Absolute Monocytes 0.7 K/uL (0.1-1.3); Absolute Neutrophil 3.7 K/uL (1.8-8.0); Basophils % 0.5 % (0-1.3); Eosinophils % 9.6 % (0-4.4); Hematocrit 38.7 % (39.6-49.0); Lymphocytes % 32.5 % (15.3-44.8); MCH 31.4 pg (27.0-35.0); MCV 90.5 fL (80-100); MPV 8.5 fL (7.6-11.3); Monocytes % 9.2 % (3.3-12.3); RBC Red Blood Cell Count 4.28 M/uL (4.33-5.43)
[2018-03-31 06:59] LABS: Protime INR 1.02
[2018-03-31 07:02] LABS: Potassium 3.9 mmol/L (3.5-5.1)
[2018-03-31] MEDS ORDERED: HEPA 1000U/500MLS 1,000 UNIT/500 ML BAG IV ONE ×2 (07:09→07:12)
[2018-03-31] MEDS ORDERED: FENTANYL CITR 100 MCG/2 ML ONE (07:27)
[2018-03-31] MEDS ORDERED: NA CHLORIDE 0.9% 0 ML ONE (07:27)
[2018-03-31] MEDS ORDERED: LIDOCAINE 1% MPF 30 ML VIAL ONE (07:27)
[2018-03-31] MEDS ORDERED: ATROPINE SULF 1 MG/10 ML SYR IV ONE (07:27)
[2018-03-31] MEDS ORDERED: MIDAZOLAM HCL 2 MG/2 ML INJ ONE (07:27)
[2018-03-31] MEDS ORDERED: NA CHLORIDE 0.9% 100 ML IV ONE (07:59)
--- NOTE | 2018-03-31 08:42 | RAD REPORT ---
EXAM DESCRIPTION: RAD - Chest Single View - 03/31/2018 6:41 am CLINICAL HISTORY: PRE-OP Chest pain. COMPARISON: No comparisons FINDINGS: Portable technique limits examination quality. The lungs are grossly clear. The heart is mildly prominent size with sternotomy wires noted. No displ aced fractures. IMPRESSION: No acute intrathoracic process suspected.
[2018-03-31] MEDS ORDERED: MORPHINE 4 MG/ML SYR ONE (09:43)
--- NOTE | 2018-03-31 19:04 | OP ---
Surgeon: Benton Mcduffie MD Box Stapler: Tana Cole. Admitted on 03/31/2018 as an outpatient for left heart catheterization. Procedures: Left heart catheterization, selective coronary arteriogram, injection of the left [employer] al mammary artery to the left anterior descending, injection of the saphenous vein graft to the obtus e marginal. Indications For Procedure: Mr. Jayant Richter is a 73-year-old white man, very well known to me from pr evious office visits admissions and procedures. He is 73. Has had a history of coronary artery dise ase, multiple stents to the graft to the OM, an occluded graft to the diagonal and a MAYER that for th e LAD with unstable angina symptoms brought to the botany laboratory assistant, prepped and draped in the routine steril e fashion. Given 2 mg of Versed for IV sedation. A 6-[place] sheath introduced in the right common f emoral artery. StarClose was used to close the case. Selective catheterization using 6-[place] ling ters were used for the left main and that showed 100% LAD, 90% proximal circumflex, the 6-[place] RCA. Nuzhat catheter showed an occluded RCA at mid level with 70% proximal stenosis. There were collat erals from the LAD distally to the PDA. The MAYER was open to the LAD and free of disease. A 3DRC ca theter was used to cannulate the graft to the OM. This had stents throughout the graft with multiple sequential 80% lesion proximally and an 80% lesion in the mid level. I decided not to pursue an ang ioplasty and stent today because he was already given 225 cc of contrast and is a diabetic, although his creatinine is 0.9, this will be a very complex intervention, and I decided to bring the patient backus hospital as an outpatient to do to do his stent of the OM graft. There were no complications. Blood Loss: 5 cc. Final Diagnosis: Coronary artery disease, severe. Total Conscious Sedation: 45 minutes. KEANU/SERENA Voice ID: [id number] Report ID: [id number]
== END 2018-03-31 13:20 | disposition home health service (06) ==
LOC: CCL 06:06
DX: I25.110 Atherosclerotic heart disease of native coronary artery with unstable angina pectoris (principal); I25.700 Atherosclerosis of coronary artery bypass graft(s), unspecified, with unstable angina pectoris; I25.82 Chronic total occlusion of coronary artery; Z95.1 Presence of aortocoronary bypass graft; Z95.5 Presence of coronary angioplasty implant and graft; I10 Essential (primary) hypertension; E78.2 Mixed hyperlipidemia; E11.9 Type 2 diabetes mellitus without complications; Z88.6 Allergy status to analgesic agent; Z82.49 Family history of ischemic heart disease and other diseases of the circulatory system
CPT/HCPCS: 36415; 71045; 80048; 82962; 85025; 85347 ×2; 85610; 85730; 92920; 93455; C1725; C1887; C1893; J0583 ×2; J2250; J3010

== ENCOUNTER 2018-04-21 07:24 | Day surgery (SDC) | payer OTHER, MEDICARE ==
[2018-04-16 10:24] LABS: Absolute Lymphocytes (CBC) 1.9 K/uL (0.7-4.9); Absolute Monocytes 0.6 K/uL (0.1-1.3); Absolute Neutrophil 3.9 K/uL (1.8-8.0); Basophils % 0.9 % (0-1.3); Eosinophils % 8.9 % (0-4.4); Hematocrit 40.1 % (39.6-49.0); Lymphocytes % 27.2 % (15.3-44.8); MCH 31.8 pg (27.0-35.0); MCV 90.8 fL (80-100); MPV 8.3 fL (7.6-11.3); Monocytes % 8.7 % (3.3-12.3); RBC Red Blood Cell Count 4.42 M/uL (4.33-5.43)
[2018-04-16 10:30] LABS: Protime INR 1.03
[2018-04-16 10:33] LABS: Potassium 4.7 mmol/L (3.5-5.1)
--- OUTSIDE RECORDS SUMMARY | 2018-04-21 07:26 | XMS REPORT | Clinical Summary ---
:1945 Author Organization [facility] Address [address] [place] [address] Care Team Providers Name Role Phone Asked, [...] INFLUENZA VACCINE 01/14/2018 Results Not on fileafter 04/20/2017 Insurance Payer Benefit Plan / Group Subscriber ID Type Phone Address MEDICARE MEDICARE PART A AND B xxxxxxxxxx Medicare [facility] SUPPLEMENT xxxxxxxxxxx Commercial
--- OUTSIDE RECORDS SUMMARY | 2018-04-21 07:26 | XMS REPORT | Continuity of Care Document ---
[...] 0.05 mcg/actuation MG/ACTUAT Metered nasal Dose Nasal [place] spray,suspensi on Inhale 2 sprays per nostril [...] POLYETHYLENE GLYCOL Miralax 17 Active [facility] 3350 11855 MG gram oral Powder for Oral powder [...] Provider Date Date Visit [place] - Cherri [id number] Cherri 08/10 [facility] Emiola, [id number] Emiola - POKER ROOM MANAGER: [id number] Toyei [address] [facility] [place] [address] , Ph. [phone] [place] - Cherri [id number] Cherri 08/10 [facility] Emiola, [id number] Emiola - POKER ROOM MANAGER: [id number] Toyei [address] [facility] [place] [address] , Ph. [phone] [place] - Jovanna [id number] Jovanna 08/20 [facility] Okumu, [id number] Okumu - POKER ROOM MANAGER: [id number] Toyei [address] [facility] [place] [address] , Ph. [phone] [place] - Kiranpal [id number] Kiranpal 04/08 [facility] Ochoa, [id number] Ochoa - PA-C: [id number] [facility] [address] , Ph. [phone] [place] - Kiranpal [id number] Kiranpal 06/24 [facility] Ochoa, [id number] Ochoa - PA-C: [id number] [facility] [place] [address] , Ph. [phone] [place] - Pauly [id number] Pauly 08/25 [facility] Thuy, [id number] Thuy - POKER ROOM MANAGER-C: [id number] [id number] [facility] [address] , Ph. [phone] [place] - Pauly [id number] Pauly 08/25 [facility] Thuy, [id number] Thuy P-C: [id number] [id number] [address] [place] [address] , Ph. [phone] [place] - Tanika [id number] Tanika 09/09 [facility] Ababio, [id number] Ababio P-C: [id number] [id number] [address] [place] [address] , Ph. [phone] Procedures Procedure Code Date Perfomer Comments Source Anesth Knee Area [facility] Surgery Removal of [facility] Gallbladder CABG/Stent [facility] Perc Cath [facility] Stent/brain Cv Art Anesth Knee Area 03186 [facility] [place] [address] [facility] Gallbladder Perc Cath 0005T [facility] Stent/brain Cv Art
[2018-04-21] MEDS ORDERED: NA CHLORIDE 0.9% 500 ML ONE (07:57)
[2018-04-21] MEDS ORDERED: NITROGLYCERIN/D5W 0 MG/0 ML BTL IV ONE (08:04)
[2018-04-21] MEDS ORDERED: ATROPINE SULF 1 MG/10 ML SYR IV ONE (08:04)
[2018-04-21] MEDS ORDERED: NA CHLORIDE 0.9% 50 ML ONE ×2 (08:04→09:22)
[2018-04-21] MEDS ORDERED: HEPA 1000U/500MLS 2,000 UNIT/1,000 ML BAG IV ONE (08:12)
[2018-04-21] MEDS ORDERED: MIDAZOLAM HCL 2 MG/2 ML INJ ONE ×3 (08:27→08:56)
[2018-04-21] MEDS ORDERED: FENTANYL CITR 100 MCG/2 ML ONE (08:27)
[2018-04-21] MEDS ORDERED: CLOPIDOGREL 75 MG TABLET ONE (09:57)
[2018-04-21] MEDS ORDERED: ASPIRIN 325 MG TAB ONE (09:57)
[2018-04-21] MEDS ORDERED: ONDANSETRON 4 MG/2 ML VIAL ONE (10:19)
[2018-04-21] MEDS ORDERED: MORPHINE 5 MG/ML VIAL IV PRN (12:30)
[2018-04-21] MEDS ORDERED: ZOLPIDEM TARTRATE 5 MG TABLET PO PRN (12:30)
[2018-04-21] MEDS ORDERED: ONDANSETRON 4 MG/2 ML VIAL IV PRN (12:30)
[2018-04-21] MEDS ORDERED: ACETAMINOPHEN 325 MG TABLET PO PRN (12:31)
[2018-04-21] MEDS ORDERED: NITROGLYCERIN 0.4 MG/TAB SL PRN (12:31)
[2018-04-21] MEDS ORDERED: NA CHLORIDE 0.9% 1,000 ML IV SCH (13:00)
--- NOTE | 2018-04-21 15:46 | OP ---
Surgeon: Benton Mcduffie MD Pressure Test Operator: Tana Cole. Admitted to my service as an outpatient today, 04/21/2018. Reason For Admission: Elective angioplasty and stent of the saphenous vein graft to the OM. Procedure In Detail: Mr. Richter had a heart catheterization within the last 2-[address] enosis of his graft to the OM within multiple stents that were done in the past. He has been having unstable angina. He was brought in today as a staged procedure to do the intervention on the SVG to the OM. He was brought to the laborer powerhouse, prepped and draped in the routine sterile fashion, given 4 m g of Versed for IV sedation. Right groin access was obtained within the common femoral artery with a 6-[place] sheath that was eventually closed with an Angio-Seal. Angiography of the SVG to the OM was done after cannulation with a guide. The guide was LCB without side holes. A [place] wire was used then to cross the lesion successfully. We did multiple initial dilatation with a 2.5 x 8 Emerge ball oon, all along the many lesions of 80 or 90% throughout the graft within old stents. This resulted i n significant improvement. We then went back with a 3.0 x 12 Emerge balloon and dilated again distal ly in the mid and proximal graft to the OM. Following that, 2 stents were placed, 1 distal, this was a 2.5 x 16, and 1 proximal was 2.0 x 12 Synergy with excellent results. There were no complications . Blood Loss: 5 cc. Postoperative Diagnosis: Coronary artery disease status post successful angioplasty and stent of the graft to the obtuse marginal. The patient received aspirin, Plavix, and Angiomax during the procedure. Total conscious sedation was 60 minutes. Disposition: The patient will be staying overnight and sent home tomorrow to see me in the office in the next 2 weeks. KEANU/SERENA Voice ID: [id number] Report ID: [id number]
[2018-04-21] MEDS ORDERED: ATORVASTATIN 80 MG TAB PO SCH (21:00)
[2018-04-22 04:17] LABS: Absolute Lymphocytes (CBC) 1.6 K/uL (0.7-4.9); Absolute Monocytes 0.6 K/uL (0.1-1.3); Absolute Neutrophil 3.6 K/uL (1.8-8.0); Basophils % 0.9 % (0-1.3); Eosinophils % 3.4 % (0-4.4); Hematocrit 35.7 % (39.6-49.0); Lymphocytes % 26.9 % (15.3-44.8); MCH 31.8 pg (27.0-35.0); MCV 92.4 fL (80-100); Monocytes % 10.3 % (3.3-12.3); RBC Red Blood Cell Count 3.86 M/uL (4.33-5.43)
[2018-04-22 04:44] LABS: Potassium 4.1 mmol/L (3.5-5.1)
[2018-04-22] MEDS ORDERED: ASPIRIN EC 325 MG TABLET PO SCH (09:00)
[2018-04-22] MEDS ORDERED: CLOPIDOGREL 75 MG TABLET PO SCH (09:00)
[2018-04-22] MEDS ORDERED: ASPIRIN EC 81 MG TAB PO SCH (09:00)
== END 2018-04-22 10:20 | disposition home or self-care (01) ==
LOC: CCL 07:24 → 4TH 09:50 → CCL 04-22 10:20
DX: I25.700 Atherosclerosis of coronary artery bypass graft(s), unspecified, with unstable angina pectoris (principal); I10 Essential (primary) hypertension; E78.2 Mixed hyperlipidemia; E11.9 Type 2 diabetes mellitus without complications; Z95.1 Presence of aortocoronary bypass graft; Z95.5 Presence of coronary angioplasty implant and graft; Z88.2 Allergy status to sulfonamides; Z82.49 Family history of ischemic heart disease and other diseases of the circulatory system
CPT/HCPCS: 36415 ×2; 80048 ×2; 80061; 82962 ×5; 85025 ×2; 85610; 85730; C1725; C1760; C1887; C1893; C9604; J0583 ×2; J2250 ×3; J2405; J3010; J7030

== ENCOUNTER 2018-09-14 06:15 | Day surgery (SDC) | payer OTHER, MEDICARE ==
[2018-09-11 12:53] LABS: Absolute Lymphocytes (CBC) 2.1 K/uL (0.7-4.9); Absolute Monocytes 0.5 K/uL (0.1-1.3); Absolute Neutrophil 4.2 K/uL (1.8-8.0); Basophils % 0.6 % (0-1.3); Eosinophils % 2.7 % (0-4.4); Hematocrit 40.4 % (39.6-49.0); Lymphocytes % 30.4 % (15.3-44.8); MPV 8.8 fL (7.6-11.3); Monocytes % 6.8 % (3.3-12.3); RBC Red Blood Cell Count 4.48 M/uL (4.33-5.43)
[2018-09-11 13:04] LABS: Potassium 4.2 mmol/L (3.5-5.1)
[2018-09-11 13:26] LABS: Protime INR 1.02
--- OUTSIDE RECORDS SUMMARY | 2018-09-14 06:20 | XMS REPORT | Continuity of Care Document ---
:1945 Author Organization Interface Problems Problem Status Onset Classification Date Comments Source Date Reported Diabetes mellitus 06/19/19 Diagnosis 06/19/2018 [facility] 19 Sore throat 06/19/19 Diagnosis 06/19/2018 [facility] symptom 19 Acute sinusitis 06/19/19 Diagnosis 06/19/2018 [facility] 19 Elevated blood 06/19/19 Diagnosis 06/19/2018 [facility] pressure 19 Body mass index 06/19/19 Diagnosis 06/19/2018 [facility] 40+ - severely 19 obese Immunization 06/19/19 Diagnosis 06/19/2018 [facility] advised 19 Common cold 05/15/20 Diagnosis 05/15/2018 [facility] 18 Low grade pyrexia 05/15/20 Diagnosis 05/15/2018 [facility] 18 Essential 05/15/20 Diagnosis 05/15/2018 [facility] hypertension 18 Chronic 09/10/19 Diagnosis 09/09/2017 [facility] constipation 18 Pain in throat 08/26/19 Diagnosis 09/09/2017 [facility] 18 Cough 08/26/19 Diagnosis 09/09/2017 [facility] 18 Acute upper 08/26/19 Diagnosis 09/09/2017 [facility] respiratory 18 infection Diabetes Mellitus 04/08/20 Problem 06/19/2018 [facility] 17 Essential 04/08/20 Problem 06/19/2018 [facility] Hypertension 17 Asthma 04/08/20 Problem 06/19/2018 [facility] 17 Superficial injury 04/08/20 Diagnosis 04/08/2017 [...] Active [facility] MG Oral Tablet gram tablet Fluticasone fluticasone 50 Active [facility] propionate 0.05 mcg/actuation MG/ACTUAT Metered nasal Dose Nasal Novi spray,suspensi on Inhale 2 sprays per nostril [...] tablet twice a day by oral route. cefdinir 300 MG cefdinir 300 Active [facility] Oral Capsule mg capsule Take 1 capsule every 12 hours by oral route with meals for 10 days. Potassium Chloride potassium Active [facility] 10 MEQ Extended chloride ER 10 Release Oral mEq Capsule capsule,extend ed release Albuterol 0.83 albuterol Active [facility] MG/ML Inhalant sulfate 2.5 Solution mg/3 mL (0.083 %) solution for nebulization Inhale 1 mL by nebulization route. benzonatate 200 MG benzonatate Active [facility] Oral Capsule 200 mg capsule Take 1 capsule 3 times a day by oral route as needed. POLYETHYLENE GLYCOL polyethylene Active [facility] 3350 57584 MG glycol 3350 17 Powder for Oral gram oral Solution powder packet Take 1 packet every day by oral route. Albuterol 0.09 ProAir HFA 90 Active [facility] MG/ACTUAT Metered mcg/actuation Dose Inhaler aerosol inhaler Inhale 2 puffs every 4 hours by inhalation route as needed. POLYETHYLENE GLYCOL Miralax 17 Active [facility] 3350 01480 MG gram oral Powder for Oral powder packet Solution [Miralax] Take 1 packet every day by oral route. Cephalexin 500 MG Keflex 500 mg Active [facility] Oral Capsule capsule Take 1 [Keflex] capsule every 12 hours by oral route as directed for 10 days. 200 ACTUAT albuterol Active [facility] Albuterol 0.09 sulfate HFA 90 MG/ACTUAT Metered mcg/actuation Dose Inhaler aerosol inhaler Inhale 2 puffs every 4 hours by inhalation route as needed. Amoxicillin 875 MG Augmentin 875 Active [facility] / Clavulanate 125 mg-125 mg MG Oral Tablet tablet Take 1 [Augmentin] tablet twice a day by oral route with meals for 10 days. Allergies, Adverse Reactions, Alerts Substance Category Reaction Severity Reaction Status Date Comments Source type Reported Codeine Itching Allergy to [facility] substance 0 Sulfa Allergy to [facility] (Sulfonamid substance 4 e Antibiotics ) Immunizations Immunization Date Site Status Last Comments Source Given Updated influenza, completed [facility] injectable, 8 quadrivalent influenza, completed [facility] injectable, 7 quadrivalent pneumococcal completed [facility] conjugate PCV 13 7 pneumococcal completed [facility] polysaccharide 6 PPV23 influenza, completed [facility] seasonal, 1 injectable influenza, completed [facility] seasonal, 1 injectable Results Order Results Value Reference Date Interpretation Comments Source Name Range RESULT negative 06/19/ [facility] 2018 SWAB Left and 06/19/ [facility] LOCATION Right 2018 tonsillar pillars Influenza A negative 05/15/ [facility] 2017 Influenza B negative 05/15/ [facility] 2017 RESULT negative 05/15/ [facility] 2017 SWAB Left and 05/15/ [facility] LOCATION Right 2017 tonsillar pillars RESULT negative 09/09/ [facility] 2018 SWAB Left and 09/09/ [facility] LOCATION Right 2018 tonsillar pillars Influenza A negative 09/09/ [facility] 2017 Influenza B negative 09/09/ [facility] 2017 RESULT negative 08/25/ [facility] 2017 SWAB Left and 08/25/ [facility] LOCATION Right 2018 tonsillar pillars Influenza A negative 08/25/ [facility] 2017 Influenza B negative 08/25/ [facility] 2017 Influenza A negative [facility] 2017 Influenza B negative 06/24/ [facility] 2017 RESULT negative 08/20/ [facility] 2016 SWAB Left and 08/20/ [facility] LOCATION Right 2017 tonsillar pillars RESULT negative 08/10/ [facility] 2017 SWAB Left and 08/10/ [facility] LOCATION Right 2017 tonsillar pillars Vital Signs Vital Sign Value Date Comments Source Diastolic (mm Hg) 80 06/19/2018 [facility] Height 70 06/19/2018 [facility] Systolic (mm Hg) 126 06/19/2018 [facility] Weight 290 06/19/2018 [facility] Diastolic (mm Hg) 80 05/15/2018 [facility] Height 70 05/15/2018 [facility] Systolic (mm Hg) 140 05/15/2018 [facility] Weight 290 05/15/2018 [facility] Diastolic (mm Hg) 80 09/09/2017 [facility] Height [...] Provider Date Date Visit [place] - Cherri [id number] Cherri 08/10 [facility] Emiola, [id number] Emiola /2017 - COMMUTATOR TESTER: [id number] [id number] [place] [address] , Ph. 82 [place] - Cherri [id number] Cherri 08/10 [facility] Emiola, [id number] Emiola - COMMUTATOR TESTER: [id number] [place] [address] [place] [address] , Ph. 82 [place] - Jovanna [id number] Jovanna 08/20 [facility] Okumu, [id number] Okumu - COMMUTATOR TESTER: [id number] [place] [address] [place] [address] , Ph. 82 [place] - Kiranpal [id number] Kiranpal 04/08 [facility] Ochoa, [id number] Ochoa - PA-C: [id number] [address] [facility] [place] [address] , Ph. 82 [place] - Kiranpal [id number] Kiranpal 06/24 [facility] Ochoa, [id number] Ochoa - PA-C: [id number] [address] [facility] [place] [address] , Ph. 82 [place] - Pauly [id number] Pauly 08/25 [facility] Thuy, [id number] Thuy - COMMUTATOR TESTER-C: [id number] [address] [facility] [place] [address] , Ph. 82 [place] - Pauly [id number] Pauly 08/25 [facility] Thuy, [id number] Thuy - COMMUTATOR TESTER-C: [id number] [id number] [address] [place] [address] , Ph. [phone] [place] - Tanika [id number] Tanika 09/09 [facility] Ababio, [id number] Ababio /2017 COMMUTATOR TESTER-C: [id number] [address] [place] [address] , Ph. [phone] [place] - Pauly [id number] Pauly 05/15 [facility] Thuy, [id number] Thuy COMMUTATOR TESTER-C: [id number] [address] [place] [address] , Ph. 82 [place] - Brandi [id number] Brandi 06/19 [facility] Evan, [id number] Gordon - PA-C: [id number] [address] [place] [address] , Ph. 82 Procedures Procedure Code Date Perfomer Comments Source Anesth Knee Area [facility] Surgery Removal of [facility] Gallbladder CABG/Stent [facility] Perc Cath [facility] Stent/brain Cv Art Anesth Knee Area [address] [facility] [place] [address] [facility] Gallbladder Perc Cath 0005T [facility] Stent/brain Cv Art
--- OUTSIDE RECORDS SUMMARY | 2018-09-14 06:21 | XMS REPORT | Encounter Summary ---
:1945 Author Reason for Visit Medical Complaint Instructions 1. Acute sinusitis sinusitis: care instructions cefdinir 300 mg capsule 2. Sore throat symptom rapid strep group A, throat sore throat: care instructions 3. Diabetes mellitus Accu-Chek wilfrid strips 4. Immunization advised 5. Body mass index 40+ - severely obese body mass index: care instructions learning about healthy weight 6. Elevated blood pressure elevated blood pressure: care instructions dash diet: care instructions Discussion Note take charge of your health provided to pt with education and questions answered Plan of Care Patient Instructions FU with PCP if symptoms worsening or not improving. Reminders Provider Appointments None recorded. Lab Rapid Strep 06/19/2018 [facility] Group a, Throat Referral None recorded. Procedures None recorded. Surgeries None recorded. Imaging None recorded. Medications Name Start Date cefdinir 300 mg capsule Take 1 capsule every 12 hours by oral route with meals for 10 days. clopidogrel 75 mg tablet furosemide 40 mg tablet isosorbide mononitrate ER 120 mg tablet,extended release 24 hr metformin 500 mg tablet metoprolol succinate ER 100 mg tablet,extended release 24 hr nitroglycerin 0.4 mg sublingual tablet potassium chloride ER 10 mEq capsule,extended release Medications Administered None recorded. Vitals Height Weight BMI Blood Pressure 5 ft 10 in 290 lbs 41.6 kg/m2 126/80 mm[Hg] Lab Results Date Name Specimen Result Interpretation Description Value Range Status Address Rapid Strep Result negative [facility]: Group a, 9 [facility] Swab Left and Right [facility]: Location tonsillar [address] [place] [address] Allergies Code Code System Name Reaction Severity [...] List Vaccine Type influenza, injectable, quadrivalent 05/16/2017 03/05/2018 influenza, seasonal, injectable 08/05/2010 08/17/2010 pneumococcal conjugate PCV 13 06/16/2016 pneumococcal polysaccharide PPV23 06/16/2015 Social History Smoking Status Never Smoker Past Encounters 06/19/2018 Acute Sinusitis; Sore Throat Symptom; Diabetes Mellitus; Immunization Advised; Body Mass Index 40+ - Severely Obese; Elevated Blood Pressure Brandi Gordon PA-C: [id number] [place] [address], Ph. [phone] History of Present Illness Throat-Oral Complaint Reported By: Patient HPI: Location: throat. Quality: sore throat, congested. Duration: 2-3 days. Onset/Timing: gradual. Context: no sick contacts, no foreign travel, non-smoker, allergies, asthma. Modifying factors: OTC medication. Associated Symptoms: no fever, no headache, no body aches, no sputum production, no shortness of breath, no wheezing, no vomiting, no diarrhea, no rash, no nausea, sore throat One Time Refill Reported By: Patient HPI: Context: Patient here for medication refill, Why does patient require med refills at [facility]? (double click for free text answer). Quality: What medical problems does patient require refills for? (double click for free text), What medications does patient require refills for? (double click for free text). Duration: How long has patient been taking above medications? > 1 year. Onset/Timing: How long has patient been out of medication? still has some Review of Systems Basic Reported By: Patient Bfax-Hboo-Lmran-Throat: Ears: no ear complaints Physical Exam Adult Basic Reported By: Patient Constitutional: General Appearance: healthy-appearing, well-nourished, well-developed. Level of Distress: NAD. Ambulation: ambulating normally Psychiatric: Mental Status: active and alert. Orientation: to time, to place, to person Eyes: Lids and Conjunctivae: non-injected, no discharge, no pallor. Pupils: PERRLA. Corneas: grossly intact. EOM: EOMI. Lens: clear. Sclerae: non-icteric. Vision: acuity grossly intact Clb-Vlsw-Nputd-Throat: Ears: no lesions on external ear, no outer ear tenderness, EACs clear, TMs clear. Hearing: no hearing loss. Nose: no lesions on external nose, nares patent, no septal deviation, nasal passages clear, sinus tenderness, post nasal drip. Lips, Teeth, and Gums: no mouth or lip ulcers, no bleeding gums, normal dentition. Oropharynx: moist mucous membranes, no erythema, no exudates, tonsils not enlarged Neck: Lymph Nodes: no cervical LAD, no supraclavicular LAD; cervical node tenderness Lungs: Respiratory effort: no dyspnea, no tachypnea, no use of accessory muscles, no intercostal retractions. Auscultation: breath sounds normal Cardiovascular: Heart Auscultation: RRR, no murmurs Neurologic: Gait and Station: normal gait, normal station
--- OUTSIDE RECORDS SUMMARY | 2018-09-14 06:21 | XMS REPORT | Encounter Summary ---
:1945 Author Reason for Visit Medical Complaint Instructions 1. Low grade pyrexia rapid flu (A+B) 2. Sore throat symptom rapid strep group A, throat sore throat: care instructions 3. Common cold upper respiratory infection (cold): care instructions viral respiratory infection: care instructions 4. Essential hypertension high blood pressure: care instructions learning about high blood pressure 5. Immunization advised shingles vaccine: what you need to know td (tetanus, diphtheria) vaccine: what you need to know 6. Body mass index 40+ - severely obese body mass index: care instructions learning about healthy weight Discussion Note: None recorded. Plan of Care Patient Instructions Increase fluid; rest. Tylenol as needed for fever or pain. Increase exposure to moist air from humidifier or hot shower. Salt water gargles as needed. Seek care if no improvement in 3-5 days or sooner if symptoms worsen. See care instructions Reminders Provider Appointments None recorded. Lab Rapid Strep 05/15/2018 [facility] Group a, Throat Rapid Flu 05/15/2018 [facility] (A+B) Referral None recorded. Procedures [...] PER DAY nitroglycerin 0.4 mg sublingual tablet polyethylene glycol 3350 17 gram oral powder packet Take 1 packet every day by oral route. potassium chloride ER 10 mEq capsule,extended release potassium chloride ER 20 mEq tablet,extended release(part/cryst) ProAir HFA 90 mcg/actuation aerosol inhaler Inhale 2 puffs every 4 hours by inhalation route as needed. Ranexa 500 mg tablet,extended release Take 1 tablet twice a day by oral route. Medications Administered None recorded. Vitals Height Weight BMI Blood Pressure 5 ft 10 in 290 lbs 41.6 kg/m2 140/80 mm[Hg] Lab Results Date Name Specimen Result Interpretation Description Value Range Status Address Rapid Flu Influenza a negative [facility]: (A+B) [address] [place] [address] Influenza B negative [facility]: [address] [place] [address] Rapid Strep Result negative [facility]: Group a, [address] [place] [address] Throat [facility] Swab Location Left and Right [facility]: tonsillar [address] pillars [facility] Allergies Code Code System Name Reaction Severity [...] History Smoking Status Never Smoker Past Encounters 05/15/2018 Low Grade Pyrexia; Sore Throat Symptom; Common Cold; Essential Hypertension; Immunization Advised; Body Mass Index 40+ - Severely Obese Pauly Daley, [facility]-C: [address] [place] [address], Ph. [phone] History of Present Illness Zinpl-Srlyxpynye-Xgmrnqi Reported By: Patient HPI: Location: head/sinuses, throat. Quality: productive cough, sore throat, nasal/sinus congestion. Duration: 5days. Severity: moderate. Onset/Timing: gradual. Context: no foreign travel, non-smoker, sick contact. Modifying factors: OTC medication, salt water gargles. Associated Symptoms: no shortness of breath, no vomiting, no diarrhea, no rash, no nausea, no fever, no muscle aches, wheezing, sore throat, fever, headache Notes: Improved today Review of Systems Basic Reported By: Patient Constitutional: Constitutional: no fever Eyes: Eyes: no eye complaints Jfht-Nsrm-Ivakr-Throat: Ears: no ear complaints. Mouth/Throat: no bleeding gums, no mouth complaints, no teeth problems, sore throat Cardiovascular: Cardiovascular: no chest pain, no shortness of breath Gastrointestinal: Gastrointestinal: no abdominal pain, no vomiting / diarrhea Musculoskeletal: Musculoskeletal: no muscle aches, no muscle weakness, no arthralgias/joint pain, no back pain Skin: Skin: no jaundice, no rashes Neurologic: Neurologic: no loss of consciousness, no dizziness Physical Exam Adult Basic, Adult Male Complete Reported By: Patient Constitutional: General Appearance: obese. Level of Distress: mild distress. Ambulation: ambulating normally Psychiatric: Mental Status: active and alert. Orientation: to time, to place, to person Eyes: Lids and Conjunctivae: non-injected, no discharge, no pallor. Sclerae: non-icteric. Vision: ; wearing glasses Ahj-Xump-Qvmxi-Throat: Ears: no lesions on external ear, no [...] normal, good air movement Cardiovascular: Heart Auscultation: RRR Musculoskeletal:: Motor Strength and Tone: normal motor strength, normal tone, normal. Joints, Bones, and Muscles: normal movement of all extremities Neurologic: Gait and Station: normal gait, normal station Skin: Inspection and palpation: no rash, no lesions, no jaundice; on visible skin Back: Thoracolumbar Appearance: normal curvature Abdomen: Bowel Sounds: normal. Inspection and Palpation: soft, no tenderness, no guarding
[2018-09-14] MEDS ORDERED: LIDOCAINE 1% MPF 30 ML VIAL ONE (06:56)
[2018-09-14] MEDS ORDERED: HEPA 1000U/500MLS 2,000 UNIT/1,000 ML BAG IV ONE (06:56)
[2018-09-14] MEDS ORDERED: NA CHLORIDE 0.9% 500 ML ONE ×2 (07:17→12:33)
[2018-09-14] MEDS ORDERED: MIDAZOLAM HCL 2 MG/2 ML INJ ONE (07:57)
[2018-09-14] MEDS ORDERED: FENTANYL CITR 100 MCG/2 ML ONE ×2 (07:57→12:20)
[2018-09-14] MEDS ORDERED: ATROPINE SULF 1 MG/10 ML SYR IV ONE (07:58)
[2018-09-14] MEDS ORDERED: NA CHLORIDE 0.9% 0 ML ONE (07:58)
[2018-09-14] MEDS ORDERED: NA CHLORIDE 0.9% 100 ML IV ONE (08:26)
[2018-09-14] MEDS ORDERED: NITROGLYCERIN 100 MCG/ML SYR (for cath lab use only) IV ONE (08:35)
[2018-09-14] MEDS ORDERED: NITROGLYCERIN/D5W 25 MG/250 ML BTL IV ONE (08:35)
[2018-09-14] MEDS ORDERED: ROSUVASTATIN 10 MG TAB PO ONE (08:53)
[2018-09-14] MEDS ORDERED: FUROSEMIDE 40 MG TABLET PO SCH (09:00)
[2018-09-14] MEDS ORDERED: PRASUGREL (EFFIENT) 10 MG TAB ONE (09:04)
--- NOTE | 2018-09-14 12:20 | OP ---
Surgeon: Juan Palafox MD Procedures: Left heart catheterization with coronary angiography, angiography of saphenous vein kassy t to the obtuse marginal, angiography of left internal mammary artery graft to the LAD, and percutane ous coronary intervention of the proximal circumflex artery, successful. A 3.0 x 20 stent was placed into it changing the stenosis from 90% to 0%. No LV gram was done. Procedure In Detail: The patient was brought to the cardiac clinical lab assistant in a fasting state, and sedated with Versed and fentanyl. Right femoral artery was used. The artery tissues were anesthetized with 1% lidocaine. The artery was entered using an 18-gauge needle, cannulated with a short J-wire. A 4 -Gambian sheath was used to do the diagnostic portion of the test. A JL4 and JR4 were used to angiogr am left coronary, right coronary, saphenous vein graft, and internal mammary artery. No LV gram was done or attempted. We then switched to a 6-Gambian sheath. We used a 6-Gambian XB LAD 3.5 with side h oles. We engaged the left main ostium. We crossed the lesion with a Lulu wire of 0.014-inch diame ter. We were able to pass a 3.0 x 20 Synergy stent across the lesion, positioned carefully, inflated it to 14 atmospheres. It took that much pressure to open up the stenosis that was hard and calcifie d, and after deflation and removal of the balloon, the stent seemed to be in excellent position with SHY-3 blood flow. No evidence of intimal flaps or other troubles. Pictures were taken in orthogona l views of the lesion with the wire and balloons removed, and then the guide catheter was removed. A n angiogram was done via the sheath of the right femoral artery. A decision was made to close using Angio-Seal. When the activated clotting time was around 250, we will close using Angio-Seal. He ashkan l be in the hospital overnight. Procedure Findings: The patient has 1 saphenous vein graft to the obtuse marginal that is patent, an d 1 internal mammary graft to the LAD that is patent. No stenosis. There is no saphenous vein graft to the right. The rampart right coronary is totally occluded. Kenaitze LAD is totally occluded. The circumflex had a 90% stenosis, and after the stent, it had 0% stenosis. AGUSTÍN/SERENA Voice ID: [id number] Report ID: [id number]
[2018-09-14] MEDS ORDERED: NITROGLYCERIN 0.4 MG/TAB SL PRN (13:19)
[2018-09-14] MEDS: NA CHLORIDE 0.9% 1,000 ML IV SCH ×2 (14:00→21:57)
[2018-09-14] MEDS: HOME MED 1 EA UNK (Jardiance 25 MG) PO SCH (14:01)
[2018-09-14] MEDS: ACETAMINOPHEN 325 MG TABLET PO PRN (14:02)
[2018-09-14 14:47] VITALS: BMI 40.8
[2018-09-14] MEDS ORDERED: PNEUMOCOCCAL VACCINE 0.5 ML IMVAC ONE (16:00)
[2018-09-14] MEDS ORDERED: FENTANYL CITR 100 MCG/2 ML IV PRN (16:57)
[2018-09-14] MEDS ORDERED: ONDANSETRON 4 MG/2 ML VIAL IV PRN (16:57)
[2018-09-15 04:44] LABS: Hematocrit 38.1 % (39.6-49.0); MPV 8.3 fL (7.6-11.3); RBC Red Blood Cell Count 4.17 M/uL (4.33-5.43)
[2018-09-15 04:52] LABS: BUN Blood Urea Nitrogen 16 mg/dL (7-18); Bicarbonate 29 mmol/L (21-32); Glucose Level 120 mg/dL (74-106); Potassium 3.5 mmol/L (3.5-5.1); Sodium Level 141 mmol/L (136-145)
[2018-09-15] MEDS: ACETAMINOPHEN 325 MG TABLET PO PRN (05:30)
[2018-09-15] MEDS ORDERED: METFORMIN HCL 850 MG TAB PO SCH (08:00)
[2018-09-15 08:24] VITALS: BP 126/77
[2018-09-15] MEDS: HOME MED 1 EA UNK (Jardiance 25 MG) PO SCH (08:26)
[2018-09-15] MEDS ORDERED: ASPIRIN EC 81 MG TAB PO SCH (09:00)
[2018-09-15] MEDS ORDERED: LISINOPRIL 10 MG TAB PO SCH (09:00)
[2018-09-15] MEDS ORDERED: FUROSEMIDE 40 MG TABLET PO SCH ×2 (09:00)
[2018-09-15] MEDS ORDERED: CLOPIDOGREL 75 MG TABLET PO SCH (09:00)
[2018-09-15] MEDS ORDERED: ISOSORBIDE MONO SR 60 MG TAB PO SCH (09:00)
[2018-09-15] MEDS ORDERED: ASPIRIN 325 MG TAB PO SCH (09:00)
[2018-09-15 11:33] VITALS: TEMP 97.4; O2SAT 96
--- NOTE | 2018-09-15 12:18 | DS ---
Date of Discharge: 09/15/2018 Hospital Course: Mr. Richter had a stent yesterday. His right groin puncture site looks good. He is as ymptomatic. Labs with good renal function. Hemoglobin and hematocrit are all stable. He is ready t o be discharged. We will not make any changes in his medications except the dose of Crestor will be increased to 40 to give better try. Discharge Medications: 1.Aspirin. 2.clopidogrel. 3.Furosemide. 4.Isosorbide mononitrate. 5.Lisinopril. 6.Nitroglycerin. 7.Rosuvastatin 40 mg. 8.metformin 1000 mg b.i.d. AGUSTÍN/SERENA Voice ID: [id number] Report ID: [id number]
[2018-09-15] MEDS ORDERED: ROSUVASTATIN 10 MG TAB PO SCH (21:00)
== END 2018-09-15 11:33 | disposition home or self-care (01) ==
LOC: CCL 06:15 → 4TH 10:42 → CCL 09-15 11:33
PROVIDERS: ATTEND Internal Medicine
DX: I25.10 Atherosclerotic heart disease of native coronary artery without angina pectoris (principal); E11.9 Type 2 diabetes mellitus without complications; E78.2 Mixed hyperlipidemia; I10 Essential (primary) hypertension; Z95.5 Presence of coronary angioplasty implant and graft; Z79.82 Long term (current) use of aspirin; Z79.84 Long term (current) use of oral hypoglycemic drugs; Z79.899 Other long term (current) drug therapy
CPT/HCPCS: 85025; 80048 ×2; 36415 ×2; 85610; 82962 ×4; 85347; 85730; 85027; 93459; C1893; C1760; C1725; C1877; C9600; J2250; J3010 ×3; J0583 ×2; J7030; J2405

== ENCOUNTER 2019-06-22 06:58 | Day surgery (SDC) | payer OTHER, MEDICARE ==
[2019-06-18 10:11] VITALS: BMI 41.7
[2019-06-18 10:55] LABS: Absolute Lymphocytes (CBC) 1.5 K/uL (0.7-4.9); Basophils % 0.7 % (0-1.3); Hematocrit 38.7 % (39.6-49.0); Lymphocytes % 22.5 % (15.3-44.8); MPV 7.9 fL (7.6-11.3); RBC Red Blood Cell Count 4.27 M/uL (4.33-5.43)
[2019-06-18 11:07] LABS: Potassium 4.6 mmol/L (3.5-5.1)
[2019-06-18 11:09] LABS: Protime INR 1.05
--- NOTE | 2019-06-18 11:35 | RAD REPORT ---
EXAM DESCRIPTION: Ninoska Choe (2 Views)06/18/2019 10:55 am CLINICAL HISTORY: Chest pain COMPARISON: 2018 FINDINGS: The lungs appear clear of acute infiltrate. The heart is mildly enlarged. Postsurgical changes involve the chest. IMPRESSION: No acute abnormalities displayed
[2019-06-22] MEDS ORDERED: NA CHLORIDE 0.9% 500 ML ONE (07:57)
[2019-06-22] MEDS ORDERED: HEPA 1000U/500MLS 2,000 UNIT/1,000 ML BAG IV ONE (08:41)
[2019-06-22] MEDS ORDERED: FENTANYL CITR 100 MCG/2 ML ONE ×2 (09:08→09:28)
[2019-06-22] MEDS ORDERED: MIDAZOLAM HCL 2 MG/2 ML INJ ONE ×2 (09:08→09:28)
[2019-06-22] MEDS ORDERED: ATROPINE SULF 1 MG/10 ML SYR IV ONE (09:09)
[2019-06-22] MEDS ORDERED: NA CHLORIDE 0.9% 50 ML ONE (09:09)
[2019-06-22] MEDS ORDERED: PRASUGREL (EFFIENT) 10 MG TAB ONE (10:09)
[2019-06-22] MEDS ORDERED: ASPIRIN 81 MG CHEWABLE TABLET ONE (10:09)
[2019-06-22] MEDS ORDERED: DIAZEPAM 5 MG TABLET PO PRN (13:11)
[2019-06-22] MEDS ORDERED: MORPHINE 4 MG/ML SYR IV PRN (13:11)
[2019-06-22] MEDS ORDERED: NA CHLORIDE 0.9% 1,000 ML IV SCH (13:15)
[2019-06-22 13:35] VITALS: O2SAT 96
[2019-06-22] MEDS ORDERED: ACETAMINOPHEN 325 MG TABLET PO PRN (15:00)
[2019-06-22] MEDS ORDERED: NITROGLYCERIN 0.4 MG/TAB SL PRN (15:00)
--- NOTE | 2019-06-22 16:46 | EKG ---
Test Date: 2018-06-18 Test Time: 10:52:59 Director Insurance: DAY MEASUREMENT RESULTS: Intervals: Rate: 59 GA: 126 QRSD: 158 QT: 484 QTc: 479 [place]: P: 16 GA: 126 QRS: -21 T: 13 INTERPRETIVE STATEMENTS: Sinus bradycardia Right bundle branch block Inferior infarct, age undetermined T wave abnormality, consider lateral ischemia Abnormal ECG Cardioserver Error - Incorrect date on EKG This EKG was performed on 06-18-2019 Compared to ECG 03/27/2004 13:57:00 Right bundle-branch block now present T-wave abnormality now present Possible ischemia now present Sinus rhythm no longer present Myocardial infarct finding still present Electronically Signed On 06-22-19 16:41:51 SENIOR MARKETING COORDINATOR by Benton Mcduffie
[2019-06-22] MEDS ORDERED: DIPHENHYDRAMINE 25 MG TAB/CAP PO PRN (18:16)
--- NOTE | 2019-06-22 20:07 | OP ---
Surgeon: Benton Mcduffie MD Gis Scientist: Gosia Paula. Reason For Admission: Unstable angina, coronary artery disease, positive previous stress test. Description Of Procedure: Mr. Richter was brought to the laborer mine, prepped and draped in the routine issac rile fashion. Given Versed for sedation. 6-British sheath introduced in the right common femoral art marty. Angiography there was normal. A JL-4 6-British was used to cannulate the left main. He was fou nd to have 100% occlusion of the LAD. He had a patent proximal and mid circumflex stent. These were placed about 2 years ago. His RCA was completely occluded. A JR4 was used to cannulate that one. This is chronic old 100% occlusion with collaterals from the left system. He had a diagonal graft wi th multiple stents from the ostium of that graft all the way to the anastomosis site. MAYER was paten t to the LAD. The diagonal graft had about 99% in-stent restenosis prior to the anastomotic site to the diagonal. A JR4 6-British side-hole guide was used to cannulate the diagonal graft as a vein kassy t. Multiple dilatations after crossing with the wire with a 2.5 x 12 and a 3.0 x 20 Emerge balloon a t maximum pressure of 14 atmosphere with about 20% to 30% residual. The patient tolerated the proced ure well. There were no complications. Estimated Blood Loss: 10 mL. Postoperative Diagnoses: Coronary artery disease, status post left internal mammary artery to the le ft anterior descending coronary artery that is open, status post stent to the circumflex that were ol d and open; occluded right coronary artery, status post successful angioplasty of the diagonal vein g raft. Patient received Angiomax. He will get 60 of Effient, 325 of aspirin, otherwise continue present regimen be observed overnight a nd sent home tomorrow. KEANU/SHERICEL Voice ID: [id number] Report ID: [id number]
[2019-06-23 06:28] LABS: Absolute Lymphocytes (CBC) 1.5 K/uL (0.7-4.9); Basophils % 0.7 % (0-1.3); Hematocrit 35.2 % (39.6-49.0); Lymphocytes % 28.1 % (15.3-44.8); MPV 7.8 fL (7.6-11.3); RBC Red Blood Cell Count 3.87 M/uL (4.33-5.43)
[2019-06-23 06:43] LABS: Potassium 3.8 mmol/L (3.5-5.1)
[2019-06-23] MEDS ORDERED: ASPIRIN 81 MG CHEWABLE TABLET ONE (08:07)
[2019-06-23 08:45] VITALS: BP 130/66; TEMP 97.1
[2019-06-23] MEDS ORDERED: ASPIRIN 81 MG CHEWABLE TABLET PO SCH (09:00)
--- NOTE | 2019-06-24 02:15 | PN ---
Date of Progress Note: 06/23/2019 Subjective: Mr. Richter was admitted as an outpatient to the labor service representative on 06/22/2019, because of coronary artery disease and unstable angina. He underwent a heart catheterization with an angioplasty of his vein graft to the diagonal. He remained in the hospital overnight. Overnight, he had no complicati ons. No chest pain. Telemetry showed normal sinus rhythm. Objective: Vital Signs: On examination, his vital signs were stable, he was afebrile. Chest: Clear. Cardiac: Revealed no murmurs, gallops, or rubs. There was a regular rhythm and rate. His right groin was intact without any hematoma. He had good distal pulses in the right dorsalis ped is and posterior tibial. He is status post angioplasty of his vein graft to the diagonal. No compli cations. He will go home on his home medication, which does includes statin and Plavix as well as Im dur. I will try to put him on Ranexa because of other chronic coronary artery disease. He has sever e distal disease with complete occlusion of his RCA. He has a patent circumflex with stents in it. He has an excellent MAYER with good distal LAD flow. KEANU/SHERICEL Voice ID: [id number] Report ID: [id number]
--- NOTE | 2019-06-24 06:47 | EKG ---
Test Date: 2019-06-23 Test Time: 10:58:35 [employer]er [employer]: MIKE MEASUREMENT RESULTS: Intervals: Rate: 66 NC: 154 QRSD: 160 QT: 446 QTc: 467 [place]: P: 49 NC: 154 QRS: 201 T: 43 INTERPRETIVE STATEMENTS: Normal sinus rhythm Right bundle branch block Abnormal ECG Compared to ECG 06/18/2018 10:52:59 Sinus bradycardia no longer present Myocardial infarct finding no longer present T-wave abnormality no longer present Possible ischemia no longer present Electronically Signed On 06-24-19 06:45:14 MULTIMEDIA MANAGER by Benton Mcduffie
== END 2019-06-23 10:48 | disposition home or self-care (01) ==
LOC: CCL 06:58 → 2ND 13:08 → CCL 06-23 10:48
DX: I25.110 Atherosclerotic heart disease of native coronary artery with unstable angina pectoris (principal); I25.700 Atherosclerosis of coronary artery bypass graft(s), unspecified, with unstable angina pectoris; T82.855A Stenosis of coronary artery stent, initial encounter; I25.82 Chronic total occlusion of coronary artery; I10 Essential (primary) hypertension; E11.9 Type 2 diabetes mellitus without complications; Z95.1 Presence of aortocoronary bypass graft; Z95.5 Presence of coronary angioplasty implant and graft; Z88.2 Allergy status to sulfonamides; Z88.6 Allergy status to analgesic agent
CPT/HCPCS: 93005 ×2; 85025 ×2; 80048 ×2; 36415 ×2; 85610; 80061; 82947 ×4; 85347 ×3; 85730; 71046; 93454; C1893; C1725; C9604; J2250 ×2; J3010 ×2; J0583; J7040; J7030